=== PATIENT | female | born 1975 | race Caucasian/White ===

== ENCOUNTER 2021-09-14 15:33 | Emergency (ER) | payer OTHER ==
[~2021-09-14 15:33] MED LIST: K-DUR TAB 20 M20 MEQ PO
[2021-09-14 17:15] LABS: HEMOGLOBIN 13.3 gm/dl (12.3-15.3); RED BLOOD COUNT 4.49 M/UL (4.00-5.10); WHITE BLOOD COUNT 10.6 K/UL (4.5-11.0)
[2021-09-14] MEDS ORDERED: CEPHALEXIN500 M1 PO ×2 (17:28→17:31)
[2021-09-14 17:40] LABS: BUN/CREATININE RATIO 16 (0-10)
== END 2021-09-14 18:00 | disposition home or self-care (01) ==
LOC: ER1 15:33
PROVIDERS: Nurse Practitioner
DX: L02.411 Cutaneous abscess of right axilla (principal); F17.210 Nicotine dependence, cigarettes, uncomplicated; Z88.2 Allergy status to sulfonamides
CPT/HCPCS: 10060; 80053; 85025; 87070; 87077; 87186; 87205; 96374; 99283; J0696